=== PATIENT | male | born 1980 | race Caucasian/White ===

== ENCOUNTER 2020-08-07 18:03 | Emergency (ER) | payer MEDICAID ==
[~2020-08-07] VITALS: Ht 172.7 cm; Wt 97.5 kg
[2020-08-07 18:28] VITALS: BP_SYST 165
[2020-08-07 18:47] VITALS: BP_SYST 154
== END 2020-08-07 18:46 | disposition home or self-care (01) ==
LOC: SED 18:03
DX: R42 Dizziness and giddiness (principal); R00.2 Palpitations
CPT/HCPCS: 93005; 99283

== ENCOUNTER 2022-04-02 18:05 | Emergency (ER) | payer MEDICAID ==
[~2022-04-02] VITALS: Ht 172.7 cm; Wt 95.3 kg
[2022-04-02 18:24] VITALS: BP_SYST 131
--- NOTE | 2022-04-02 18:26 | NUR ---
Patient triaged and placed in waiting room. VSS and patient appears in no acute distress at this time. Accompanied by SELF, awaiting available bed, and MD notified of need for MSE.
--- NOTE | 2022-04-02 19:24 | NUR ---
EDISON Nguyen examining patient.
[2022-04-02] MEDS ORDERED: CIPR5DRO BOTH EYES (19:30)
--- NOTE | 2022-04-02 20:56 | NUR ---
Patient came in to the emergency room with complains of redness and discharges to bilateral eyes, started in his left eye comes over to his right eye for 4 days. Patient states he has been using [id number] medications with no improvement of symptoms. He denies any trauma, injury, sick contacts. He states he does not wear any contact lenses and there are no other complaints. Patient reports irritation.
[2022-04-02 20:57] VITALS: BP_SYST 149
--- NOTE | 2022-04-02 20:57 | NUR ---
Patient given written and verbal discharge instructions and verbalizes understanding. ER MD discussed with patient the results and treatment provided. Patient in stable condition. Rx of Ciprofloxacin ophthalmic given. Patient educated on medicine and to follow up with PMD. Pain Scale 0/10. Opportunity for questions provided and answered.
== END 2022-04-02 20:57 | disposition home or self-care (01) ==
LOC: SED 18:05
DX: H10.33 Unspecified acute conjunctivitis, bilateral (principal); H57.13 Ocular pain, bilateral; Z79.899 Other long term (current) drug therapy
CPT/HCPCS: 99283

== ENCOUNTER 2022-04-22 04:51 | Emergency (ER) | payer MEDICAID ==
[~2022-04-22] VITALS: Ht 172.7 cm; Wt 86.2 kg
[~2022-04-22 04:51] MED LIST: CIPR5DRO BOTH EYES
[2022-04-22 05:07] VITALS: BP_SYST 130
--- NOTE | 2022-04-22 05:13 | NUR ---
EDISON Rojas at bedside examining patient.
[2022-04-22] MEDS ORDERED: NACL 0.9% 1,000 ML IV ONE (05:15)
[2022-04-22] MEDS ORDERED: LORazepam 2 MG/ML VIAL IVP ONE (05:30)
[2022-04-22 06:00] LABS: BASOPHILS % (AUTO) 0.6 % (0.0-2.0); EOSINOPHILS # (AUTO) 0.1 K/uL (0.0-0.4); EOSINOPHILS % (AUTO) 2.1 % (0.0-4.0); HEMATOCRIT 40.2 % (36-54); HEMOGLOBIN 14.1 g/dL (14.0-18.0); LYMPHOCYTES # (AUTO) 2.5 K/uL (1.0-5.5); LYMPHOCYTES % (AUTO) 59.5 % (20.5-51.5); MEAN CORPUSCULAR HEMOGLOBIN 28 pg (27-31); MEAN CORPUSCULAR HGB CONC 35 % (32-36); MEAN CORPUSCULAR VOLUME 81 fL (79.0-98.0); MONOCYTES # (AUTO) 0.3 K/uL (0.0-1.0); MONOCYTES % (AUTO) 6.2 % (1.7-9.3); NEUTROPHILS # (AUTO) 1.3 K/uL (1.8-7.7); NEUTROPHILS % (AUTO) 31.6 % (40.0-70.0); PLATELET COUNT (AUTO) 205 K/uL (130-430); RED BLOOD CELL COUNT(AUTO) 4.98 MIL/uL (4.2-6.2); WHITE BLOOD COUNT (AUTO) 4.1 K/uL (4.8-10.8)
--- NOTE | 2022-04-22 06:05 | NUR ---
PT ABLE TO USE URINAL. UA SENT, PT ON NS BOLUS. PT RELIEVED WITH URINARY FRQUENCY.
[2022-04-22 06:12] LABS: CALCIUM 8.7 mg/dL (8.4-11.0); CREATININE 1.03 mg/dL (0.55-1.30); TOTAL BILIRUBIN 0.8 mg/dL (0.0-1.0)
[2022-04-22 06:13] LABS: ALBUMIN 3.9 g/dL (3.4-4.8)
[2022-04-22 06:53] VITALS: BP_SYST 129
[2022-04-22 07:15] LABS: BILIRUBIN,URINE NEGATIVE (NEGATIVE); BLOOD, URINE NEGATIVE (NEGATIVE); CLARITY/URINE CLEAR (CLEAR); COLOR,URINE YELLOW (YELLOW); GLUCOSE,URINE NEGATIVE (NEGATIVE); KETONES,URINE NEGATIVE (NEGATIVE); LEUKOCYTE ESTERASE ,URINE NEGATIVE (NEGATIVE); NITRITE, URINE NEGATIVE (NEGATIVE); PH,URINE 5.5 (5.0-8.0); PROTEIN URINE NEGATIVE (NEGATIVE); UROBILINOGEN,URINE 0.2 (0.2-1.0)
== END 2022-04-22 06:53 | disposition home or self-care (01) ==
LOC: SED 04:51
DX: R33.9 Retention of urine, unspecified (principal); R19.7 Diarrhea, unspecified; Z79.899 Other long term (current) drug therapy
CPT/HCPCS: 99283; 96374; 96361; 80053; 85025; 36415; 81003; J2060; J7030